=== PATIENT | male | born 1945 | race Caucasian/White ===

== ENCOUNTER 2023-04-22 14:05 | Outpatient (RCR) | payer MEDICARE, OTHER, SELFPAY | END 2023-04-24 12:13 | disposition home or self-care (01) | LOC: RPT 14:05 | PROVIDERS: ATTENDING PHYSICIAN Orthopaedic Surgery; FAMILY PHYSICIAN Nurse Practitioner Primary Care | DX: S83.282D Other tear of lateral meniscus, current injury, left knee, subsequent encounter (principal); R26.89 Other abnormalities of gait and mobility | CPT/HCPCS: 97110; 97112 ==

== ENCOUNTER → 2023-11-20 10:56 | Outpatient (REF) | payer MEDICARE, OTHER, SELFPAY ==
[2023-11-20 12:15] LABS: % Basophils 1.1 % (0-2); % Eosinophils 12.2 % (0-6); % Immature Granulocytes 0.4 % (0-0.5); % Lymphocytes 24.9 % (20.5-51.1); % Monocytes 12.7 % (1.7-9.3); % Neutrophils 48.7 % (42.2-75.2); Absolute Basophils 0.1 10^3/uL (0-0.2); Absolute Eosinophils 0.7 10^3/uL (0-0.7); Absolute Lymphocytes 1.4 10^3/uL (1.2-3.4); Absolute Monocytes 0.7 10^3/uL (0.1-0.6); Absolute Neutrophils 2.7 10^3/uL (1.4-6.5); Hematocrit 42.3 % (39.0-52.0); Hemoglobin 14.2 g/dL (13.0-18.0); Mean Corp Hgb Conc. 33.6 g/dL (33.0-37.0); Mean Corpuscular Hgb 30.8 pg (27.0-31.0); Mean Corpuscular Volume 91.8 fL (80.0-94.0); Mean Platelet Volume 9.8 fL (7.4-10.4); Nucleated Red Blood Cells % 0 % (-); Platelet Count 301 10^3/uL (130-400); Red Blood Cell Count 4.61 10^6/uL (4.70-6.10); Red Cell Dist. Width 12.8 % (11.5-14.5); White Blood Cell Count 5.4 10^3/uL (4.8-10.8)
[2023-11-20 12:23] LABS: ALT (SGPT) 26 U/L (0-50); AST (SGOT) 30 U/L (17-59); Albumin 4.1 g/dl (3.5-5.0); Alkaline Phosphatase 88 U/L (38-126); Blood Urea Nitrogen 22 mg/dl (9-20); Calcium 9.8 mg/dl (8.4-10.2); Carbon Dioxide 25 mmol/L (22-30); Chloride 108 mmol/L (98-107); Glucose 105 mg/dl (70-99); HDL Cholesterol 52 mg/dl; LDL Cholesterol, Calculated 97 mg/dl; Potassium 4.1 mmol/L (3.5-5.1); Sodium 141 mmol/L (135-145); Total Bilirubin 0.5 mg/dl (0.2-1.3); Total Cholesterol 188 mg/dl (50-199); Total Protein 6.6 g/dl (6.3-8.2); Triglyceride 195 mg/dl (10-149); Very Low Density Lipoprotein 39 mg/dl (0-30); eGFR > 60.00
[2023-11-20 12:34] LABS: Urine Protein 5 mg/dl
[2023-11-20 12:54] LABS: TSH Reflex To Free T4 1.56 uIU/ml (0.47-4.68)
[2023-11-21 09:24] LABS: Glycohemoglobin (HgbA1c) 5.9 % (4.0-5.6)
[2023-11-22 23:04] LABS: Endomysial IgA Antibody Titer <1:10 (<1:10)
[2023-11-22 23:45] LABS: IgA 183 mg/dl (70-400)
== END ==
LOC: REG 10:56
PROVIDERS: ATTENDING PHYSICIAN Nurse Practitioner Primary Care
DX: I10 Essential (primary) hypertension (principal); R73.03 Prediabetes; K76.0 Fatty (change of) liver, not elsewhere classified; K90.9 Intestinal malabsorption, unspecified; K90.41 Non-celiac gluten sensitivity; E66.09 Other obesity due to excess calories; E78.2 Mixed hyperlipidemia
CPT/HCPCS: 36415; 80053; 80061; 82570; 82784; 83036; 83516; 84156; 84443; 85025; 86231

== ENCOUNTER 2023-12-15 14:07 | Outpatient (RCR) | payer MEDICARE, OTHER, SELFPAY | END 2023-12-15 23:59 | disposition home or self-care (01) | LOC: RPT 14:07 | PROVIDERS: ATTENDING PHYSICIAN Specialist; FAMILY PHYSICIAN Nurse Practitioner Primary Care | DX: S83.232D Complex tear of medial meniscus, current injury, left knee, subsequent encounter (principal); M17.12 Unilateral primary osteoarthritis, left knee | CPT/HCPCS: 97110; 97163 ==

== ENCOUNTER 2024-01-05 13:57 | Outpatient (RCR) | payer MEDICARE, OTHER, SELFPAY | END 2024-01-05 23:59 | disposition home or self-care (01) | LOC: RPT 13:57 | PROVIDERS: ATTENDING PHYSICIAN Specialist; FAMILY PHYSICIAN Nurse Practitioner Primary Care | DX: S83.232D Complex tear of medial meniscus, current injury, left knee, subsequent encounter (principal); M17.12 Unilateral primary osteoarthritis, left knee | CPT/HCPCS: 97110 ==

== ENCOUNTER → 2024-01-11 15:51 | Outpatient (REF) | payer MEDICARE, OTHER, SELFPAY | LOC: HWRCS 15:51 | PROVIDERS: ATTENDING PHYSICIAN Nurse Practitioner Primary Care; FAMILY PHYSICIAN Internal Medicine Geriatric Medicine | DX: I10 Essential (primary) hypertension (principal) | CPT/HCPCS: 93306 ==

== ENCOUNTER → 2024-01-12 12:52 | Outpatient (REF) | payer MEDICARE, OTHER, SELFPAY | LOC: RCS 12:52 | PROVIDERS: ATTENDING PHYSICIAN Nurse Practitioner Primary Care | DX: I10 Essential (primary) hypertension (principal); E78.2 Mixed hyperlipidemia; R93.1 Abnormal findings on diagnostic imaging of heart and coronary circulation | CPT/HCPCS: 93005 ==

== ENCOUNTER 2024-01-19 15:02 | Outpatient (RCR) | payer MEDICARE, OTHER, SELFPAY | END 2024-01-19 23:59 | disposition home or self-care (01) | LOC: RPT 15:02 | PROVIDERS: ATTENDING PHYSICIAN Specialist; FAMILY PHYSICIAN Nurse Practitioner Primary Care | DX: M25.562 Pain in left knee (principal); R26.89 Other abnormalities of gait and mobility; Z73.6 Limitation of activities due to disability; S83.232D Complex tear of medial meniscus, current injury, left knee, subsequent encounter; Z91.81 History of falling | CPT/HCPCS: 97110 ==

== ENCOUNTER → 2024-01-20 15:33 | Outpatient (REF) | payer MEDICARE, OTHER, SELFPAY ==
[2024-01-20 17:30] LABS: PSA, Total - Screen 0.31 ng/ml (0.0-4.0)
== END ==
LOC: REG 15:33
PROVIDERS: ATTENDING PHYSICIAN Nurse Practitioner Primary Care
DX: Z12.5 Encounter for screening for malignant neoplasm of prostate (principal)
CPT/HCPCS: 36415; G0103

== ENCOUNTER 2024-02-16 14:04 | Outpatient (RCR) | payer MEDICARE, OTHER, SELFPAY | END 2024-02-16 16:04 | disposition home or self-care (01) | LOC: RPT 14:04 | PROVIDERS: ATTENDING PHYSICIAN Specialist; FAMILY PHYSICIAN Nurse Practitioner Primary Care | DX: S83.232D Complex tear of medial meniscus, current injury, left knee, subsequent encounter (principal); S83.282D Other tear of lateral meniscus, current injury, left knee, subsequent encounter; M17.12 Unilateral primary osteoarthritis, left knee; Z73.6 Limitation of activities due to disability; R26.89 Other abnormalities of gait and mobility | CPT/HCPCS: 97110 ==

== ENCOUNTER → 2024-06-10 10:14 | Outpatient (REF) | payer MEDICARE, OTHER, SELFPAY ==
[2024-06-10 11:36] LABS: HDL Cholesterol 51 mg/dl; LDL Cholesterol, Calculated 52 mg/dl; Total Cholesterol 135 mg/dl (50-199); Triglyceride 162 mg/dl (10-149); Very Low Density Lipoprotein 32 mg/dl (0-30)
== END ==
LOC: REG 10:14
PROVIDERS: ATTENDING PHYSICIAN Nurse Practitioner Primary Care
DX: Z12.5 Encounter for screening for malignant neoplasm of prostate (principal); E78.2 Mixed hyperlipidemia
CPT/HCPCS: 36415; 80061; G0103

== ENCOUNTER → 2025-04-26 09:55 | Outpatient (REF) | payer MEDICARE, OTHER, SELFPAY ==
[2025-04-26 11:05] LABS: Hematocrit 43.9 % (39.0-52.0); Hemoglobin 14.8 g/dL (13.0-18.0); Mean Corp Hgb Conc. 33.7 g/dL (33.0-37.0); Mean Corpuscular Volume 92.6 fL (80.0-94.0); Nucleated Red Blood Cells % 0 % (-); Platelet Count 250 10^3/uL (130-400); Red Cell Dist. Width 12.7 % (11.5-14.5)
[2025-04-26 11:43] LABS: Glycohemoglobin (HgbA1c) 5.8 % (4.0-5.9)
[2025-04-26 12:03] LABS: ALT (SGPT) 36 U/L (0-50); AST (SGOT) 33 U/L (17-59); Albumin 4.6 g/dl (3.5-5.0); Alkaline Phosphatase 63 U/L (38-126); Blood Urea Nitrogen 23 mg/dl (9-20); Calcium 10.0 mg/dl (8.4-10.2); Carbon Dioxide 25 mmol/L (22-30); Chloride 108 mmol/L (98-107); Glucose 114 mg/dl (70-99); HDL Cholesterol 53 mg/dl; Iron 187 ug/dl (49-181); LDL Cholesterol, Calculated 47 mg/dl; Magnesium 2.0 mg/dl (1.6-2.3); Potassium 4.1 mmol/L (3.5-5.1); Sodium 137 mmol/L (135-145); Total Protein 7.2 g/dl (6.3-8.2); Very Low Density Lipoprotein 31 mg/dl (0-30); eGFR > 60.00
[2025-04-26 12:13] LABS: Total Iron Binding Capacity 284 ug/dl (261-462)
[2025-04-26 16:34] LABS: Vitamin D, 25-OH*** 61.2 ng/mL (30-80)
[2025-04-26 16:49] LABS: Ferritin 139.0 ng/ml (17.9-464.0)
[2025-04-26 17:21] LABS: Folate 17.5 ng/ml (2.76-20); Vitamin B12 656 pg/ml (239-931)
== END ==
LOC: REG 09:55
PROVIDERS: ATTENDING PHYSICIAN Nurse Practitioner Primary Care
DX: E78.2 Mixed hyperlipidemia (principal); R93.1 Abnormal findings on diagnostic imaging of heart and coronary circulation; R73.03 Prediabetes; K21.9 Gastro-esophageal reflux disease without esophagitis; D64.9 Anemia, unspecified; D52.9 Folate deficiency anemia, unspecified; Z79.899 Other long term (current) drug therapy; E55.9 Vitamin D deficiency, unspecified
CPT/HCPCS: 36415; 80053; 80061; 82306; 82607; 82728; 82746; 83036; 83540; 83550; 83735; 84443; 85025

== ENCOUNTER → 2025-05-09 15:13 | Outpatient (REF) | payer MEDICARE, OTHER, SELFPAY ==
[2025-05-09 16:43] LABS: Iron 116 ug/dl (49-181)
[2025-05-09 16:52] LABS: Total Iron Binding Capacity 280 ug/dl (261-462)
[2025-05-09 17:16] LABS: Ferritin 116.0 ng/ml (17.9-464.0)
== END ==
LOC: REG 15:13
PROVIDERS: ATTENDING PHYSICIAN Nurse Practitioner Primary Care
DX: R79.0 Abnormal level of blood mineral (principal)
CPT/HCPCS: 36415; 81256; 82728; 83540; 83550; 84466